=== PATIENT | female | born 1990 | race Asian ===

== ENCOUNTER 2025-02-23 12:58 | Outpatient (CLI) | payer OTHER | END 2025-02-23 12:59 | disposition home or self-care (01) | LOC: SCSMRI 12:58 | PROVIDERS: ATTEND Internal Medicine | DX: C49.21 Malignant neoplasm of connective and soft tissue of right lower limb, including hip (principal); M62.9 Disorder of muscle, unspecified ==

== ENCOUNTER 2025-02-25 08:00 | Outpatient (CLI) | payer OTHER | END 2025-02-25 08:01 | disposition home or self-care (01) | LOC: PET 08:00 | PROVIDERS: ATTEND Internal Medicine | DX: C49.21 Malignant neoplasm of connective and soft tissue of right lower limb, including hip (principal); R22.41 Localized swelling, mass and lump, right lower limb | CPT/HCPCS: 78815; A9552 ==